=== PATIENT | female | born 1995 | race Caucasian/White ===

== ENCOUNTER 2017-06-16 16:05 | Emergency (ER) | payer BC, OTHER ==
[2017-06-16] MEDS ORDERED: KETOROLAC TROMETHAMINE 30 MG/1 ML VIAL IVPUSH ONE (16:14)
[2017-06-16] MEDS ORDERED: SODIUM CHLORIDE 1,000 ML IV STA ×2 (16:14→18:06)
[2017-06-16] MEDS ORDERED: ACETAMINOPHEN 1000 MG/100 ML VIAL (NON FORMULARY) IVPB ONE (16:14)
[2017-06-16] MEDS ORDERED: ONDANSETRON 4 MG/2 ML VIAL IVPB ONE (16:14)
[2017-06-16] MEDS ORDERED: ACETAMINOPHEN INJECTION 100 ML IVPB ONE (16:19)
[2017-06-16] MEDS ORDERED: KETOROLAC TROMETHAMINE 30 MG/1 ML VIAL ONE (16:19)
[2017-06-16] MEDS ORDERED: ONDANSETRON 4 MG/2 ML VIAL ONE ×2 (16:19→16:43)
--- NOTE | 2017-06-16 16:27 | PDOC ---
History of Present Illness - History of Present Illness Initial Comments: 06/16/17 16:42 The patient is a 22 year old female, with no significant past medical history, who presents to the emergency department with 3 day complaint of nasal congestion, diarrhea, nausea, vomiting, and generalized weakness. The patient states her symptoms started with nasal congestion and rhinorrhea which she started taking Mucinex with little to no alleviation. She states she shortly after developed loose, watery, brown stools. She reports numerous episodes of nonbloody emesis and states she has been dry heaving for the past 3 hours. She attends [employer] and can not deny sick contacts. She is a engineering aid. She denies chest pain, shortness of breath, headache and dizziness. She denies fever, chills, and constipation. She denies dysuria, frequency, urgency and hematuria. Allergies: amoxicillin and penicillin Past surgical history: nose and tonsillectomy Social history: denies toxic habits <Janice Greene - Last Filed: 06/16/17 16:42> <Gen Pollock - Last Filed: 06/16/17 19:06> - General Chief Complaint: Nausea/Vomiting Stated Complaint: NAUSEA &VOMTING Time Seen by Provider: 06/16/17 16:12 Past History <Janice Greene - Last Filed: 06/16/17 16:42> - Past Medical History Asthma: Yes - Immunization History Immunization Up to Date: Yes - Suicide/Smoking/Psychosocial Hx Smoking History: Never smoked Hx Alcohol Use: No Substance Use Type: None <Gen Pollock - Last Filed: 06/16/17 19:06> - Past Medical History Allergies/Adverse Reactions: Allergies Allergy/AdvReac Type Severity Reaction Status Date / Time amoxicillin Allergy Intermediate Vomiting Verified 10/12/14 10:36 Penicillins Allergy Mild Rash Verified 06/16/17 16:10 Home Medications: Ambulatory Orders Albuterol Sulfate Inhaler - [Ventolin HFA Inhaler -] 2 inh PO Q6H PRN 10/12/14 Guaifenesin [Mucinex -] 600 mg PO BID PRN 06/16/17 Ibuprofen [Motrin -] 600 mg PO QID #28 tablet 06/16/17 Norgestimate-Ethinyl Estradiol [Sprintec 28 Day Tablet] 1 each PO DAILY Ondansetron [Zofran *Odt*] 8 mg SL TID #30 od.tablet 06/16/17 Review of Systems - Review of Systems Able to Perform ROS?: Yes Comments:: 06/16/17 16:42 GENERAL/CONSTITUTIONAL: (+) weakness. No fever or chills. HEAD, EYES, EARS, NOSE AND THROAT: (+) nasal congestion. No change in vision. No ear pain or discharge. No sore throat. CARDIOVASCULAR: No chest pain or shortness of breath. RESPIRATORY: No cough, wheezing, or hemoptysis. GASTROINTESTINAL: (+) nausea, vomiting, diarrhea, No constipation. GENITOURINARY: No dysuria, frequency, or change in urination. MUSCULOSKELETAL: No joint or muscle swelling or pain. No neck or back pain. SKIN: No rash NEUROLOGIC: No headache, vertigo, loss of consciousness, or change in strength/ sensation. ENDOCRINE: No increased thirst. No abnormal weight change. HEMATOLOGIC/LYMPHATIC: No anemia, easy bleeding, or history of blood clots. ALLERGIC/IMMUNOLOGIC: No hives or skin allergy. <Janice Greene - Last Filed: 06/16/17 16:42> *Physical Exam - Vital Signs Last Vital Signs Temp Pulse Resp BP Pulse Ox 97.3 F L 128 H 16 128/94 100 06/16/17 16:09 06/16/17 16:09 06/16/17 16:09 06/16/17 16:09 06/16/17 16:09 - Physical Exam Comments: 06/16/17 16:43 GENERAL: Awake, alert, and fully oriented, in no acute distress HEAD: No signs of trauma EYES: PERRLA, EOMI, sclera anicteric, conjunctiva clear ENT: (+) Dry mucosa. Auricles normal inspection, hearing grossly normal, nares patent, oropharynx clear without exudates. NECK: Normal ROM, supple, no lymphadenopathy, JVD, or masses LUNGS: Breath sounds equal, clear to auscultation bilaterally. No wheezes, and no crackles HEART: Regular rate and rhythm, normal S1 and S2, no murmurs, rubs or gallops ABDOMEN: Soft, nontender, normoactive bowel sounds. No guarding, no rebound. No masses EXTREMITIES: Normal range of motion, no edema. No clubbing or cyanosis. No cords, erythema, or tenderness NEUROLOGICAL: Cranial nerves II through XII grossly intact. Normal speech, normal gait SKIN: Warm, Dry, normal turgor, no rashes or lesions noted. <Janice Greene - Last Filed: 06/16/17 16:42> ED Treatment Course - LABORATORY CBC & Chemistry Diagram: 06/16/17 16:25 06/16/17 16:25 <Janice Greene - Last Filed: 06/16/17 16:42> - LABORATORY CBC & Chemistry Diagram: 06/16/17 16:25 06/16/17 16:25 <Gen Pollock - Last Filed: 06/16/17 19:06> *DC/Admit/Observation/Transfer - Attestations Scribe Attestion: 06/16/17 16:44 Documentation prepared by Janice Greene, acting as durable medical equipment repairer for Gen Pollock DO <Janice Greene - Last Filed: 06/16/17 16:42> - Discharge Dispostion Admit: No - Attestations Physician Attestion: 06/16/17 16:13 I, Dr. Gen Pollock, attest that this document has been prepared under my direction and personally reviewed by me in its entirety. I further attest, that it accurately reflects all work, treatment, procedures and medical decision -making performed by me. <Gen Pollock - Last Filed: 06/16/17 19:06> Diagnosis at time of Disposition: Viral infection, Dehydration - Discharge Dispostion Disposition: HOME Condition at time of disposition: Improved - Patient Instructions Printed Discharge Instructions: DI for Viral Syndrome, DI for Viral Gastroenteritis -- Adult Additional Instructions: SORRY THIS HIT YOU SO HARD RUBEN Keep up with the fluids best you can. Gatoraide , Jello, Soup, As much as you can. The diarrhea will pass Zofran is for Nausea or Vomiting Motrin is for bodyaches and fever Return to us if worse- Follow up with your doctor later this week Best- Dr. Gen Pollock
[2017-06-16 16:42] VITALS: BMI 24.0
[2017-06-16 16:59] LABS: ALBUMIN 4.5 g/dl (3.5-5.0); ALK PHOS 101 U/L (32-92); ANION GAP 10 (8-16); BILIRUBIN,TOTAL 0.9 mg/dl (0.2-1.0); CALCIUM 9.5 mg/dl (8.4-10.2); CO2 24 mmol/L (22-28); CREATININE 0.9 mg/dl (0.6-1.3); GLUCOSE,RANDOM 134 mg/dl (74-106); MEAN PLT VOLUME 10.1 fl (7.5-11.1); SGOT/AST 29 U/L (10-42); SGPT/ALT 28 U/L (10-40); TOT PROT 8.2 g/dl (6.4-8.3); WHITE BLOOD COUNT 17.8 K/mm3 (4.0-10.8)
[2017-06-16 17:02] LABS: MCH 28.9 pg (25.7-33.7); MCHC 33.9 g/dl (32.0-36.0); MEAN CELL VOLUME 85.1 fl (80-96); PLATELET COUNT 286 K/MM3 (134-434); RDW 12.2 % (11.6-15.6)
[2017-06-16 17:53] LABS: PLATELET ESTIMATE ADEQUATE (NORMAL)
[2017-06-16 17:58] LABS: PH,URINE 5.5 (4.5-8); URINE APPEARANCE Clear; URINE BILIRUBIN 1+ (NEGATIVE); URINE BLOOD Negative (NEGATIVE); URINE COLOR YELLOW; URINE GLUCOSE (UA) Negative (NEGATIVE); URINE KETONE 3+ (NEGATIVE); URINE LEUK ESTERASE Negative (NEGATIVE); URINE NITRITE Negative (NEGATIVE); URINE PROTEIN 1+ (NEGATIVE); URINE UROBILINOGEN 0.2 (0.2-1.0)
[2017-06-16 18:30] LABS: URINE RBC NONE SEEN /hpf (0-3)
[2017-06-16 18:31] LABS: URINE MUCUS 1+
[2017-06-16 19:25] LABS: MCH 28.3 pg (25.7-33.7); MCHC 33.4 g/dl (32.0-36.0); MEAN CELL VOLUME 84.8 fl (80-96); MEAN PLT VOLUME 9.3 fl (7.5-11.1); NEUTROPHILS 89.8 % (42.8-82.8); PLATELET COUNT 218 K/MM3 (134-434); RDW 12.2 % (11.6-15.6); WHITE BLOOD COUNT 13.1 K/mm3 (4.0-10.8)
[2017-06-16 19:54] VITALS: BP 126/78; PULSE 83; TEMP 98.6
== END 2017-06-16 19:40 | disposition home or self-care (01) ==
LOC: FER 16:05
PROC: 3E033NZ Introduction of Analgesics, Hypnotics, Sedatives into Peripheral Vein, Percutaneous Approach (ICD-10-PCS; principal; 2017-06-16)
PROC: 3E0333Z Introduction of Anti-inflammatory into Peripheral Vein, Percutaneous Approach (ICD-10-PCS; 2017-06-16)
PROC: 3E033GC Introduction of Other Therapeutic Substance into Peripheral Vein, Percutaneous Approach (ICD-10-PCS; 2017-06-16)
PROC: 3E0337Z Introduction of Electrolytic and Water Balance Substance into Peripheral Vein, Percutaneous Approach (ICD-10-PCS; 2017-06-16)
DX: B34.9 Viral infection, unspecified (principal); E86.0 Dehydration
CPT/HCPCS: 36415; 80053; 81003; 81015; 84703; 85025; 99283-25

== ENCOUNTER 2017-08-01 22:54 | Emergency (ER) | payer BC ==
[2017-08-01] MEDS ORDERED: ONDANSETRON 4 MG/2 ML VIAL IVPUSH ONE (23:45)
[2017-08-01] MEDS ORDERED: SODIUM CHLORIDE 0.9% 1000 ML INFUS.BAG IV ONE (23:46)
[2017-08-01 23:50] VITALS: BP 144/91; TEMP 97.9; BMI 23.8
--- NOTE | 2017-08-02 00:23 | PDOC ---
History of Present Illness - General Chief Complaint: Nausea/Vomiting Stated Complaint: vomitting Time Seen by Provider: 08/01/17 23:05 - History of Present Illness Initial Comments: This 22-year-old woman with a history of asthma and susceptibility to infectious disease(reportedly after [place] swine flu several years ago) presents with a one-day history of nausea/vomiting/diarrhea. Patient had a brief episode of "food poisoning" 4 days prior to presentation. This was self- limited and she had no symptoms until today when nausea began this morning. Patient has vomited twice since then and has had multiple episodes of watery stool (no blood or mucus noted). Patient lives in a dormitory at [facility] and there are cases of viral gastroenteritis there reportedly. No fever noted although patient feels "chills". Patient reports generalized abdominal discomfort without specific area of pain. Past History - Past Medical History Allergies/Adverse Reactions: Allergies Allergy/AdvReac Type Severity Reaction Status Date / Time amoxicillin Allergy Intermediate Vomiting Verified 10/12/14 10:36 Penicillins Allergy Mild Rash Verified 06/16/17 16:10 Home Medications: Ambulatory Orders Norgestimate-Ethinyl Estradiol [Sprintec 28 Day Tablet] 1 each PO DAILY Ondansetron [Zofran Odt -] 4 mg SL TID PRN #10 od.tablet 08/02/17 Asthma: Yes COPD: No - Immunization History Immunization Up to Date: Yes - Suicide/Smoking/Psychosocial Hx Smoking History: Never smoked Hx Alcohol Use: No Drug/Substance Use Hx: No Substance Use Type: None Review of Systems - Review of Systems Able to Perform ROS?: Yes Comments:: 12 point review of systems is negative except for what is noted in the history of present illness *Physical Exam - Vital Signs Last Vital Signs Temp Pulse Resp BP Pulse Ox 97.9 F 108 H 18 144/91 99 08/01/17 23:48 08/01/17 23:48 08/01/17 23:48 08/01/17 23:48 08/01/17 23:48 - Physical Exam Comments: GENERAL: Young adult female, alert and oriented 3, in mild distress secondary to nausea/abdominal discomfort HEAD: Normal with no signs of trauma. EYES: PERRLA, EOMI, sclera anicteric, conjunctiva clear. ENT: Ears normal, nares patent, oropharynx clear without exudates. Dry mucous membranes. NECK: Normal range of motion, supple without lymphadenopathy, JVD, or masses. LUNGS: Breath sounds equal, clear to auscultation bilaterally. No wheezes, and no crackles. HEART:Regular rate and rhythm, normal S1 and S2 without murmur, rub or gallop. ABDOMEN:.normal bowel sounds No guarding,tenderness or rebound.No masses No distention. EXTREMITIES: Normal range of motion, no edema. No clubbing or cyanosis. No erythema, or tenderness. NEUROLOGICAL: Cranial nerves II through XII grossly intact. Normal speech. No focal neurological deficits. MUSCULOSKELETAL: Back non-tender to palpation, no CVA tenderness SKIN: Warm, Dry, normal turgor, no rashes or lesions noted. ED Treatment Course - Medications Given in the ED: ED Medications Discontinued Medications Generic Name Dose Route Start Last Admin Trade Name Freq PRN Reason Stop Dose Admin Ondansetron HCl 4 mg 08/01/17 23:45 08/01/17 23:45 Zofran Injection IVPUSH 08/01/17 23:46 4 mg NOW ONE Administration Sodium Chloride 1,000 ml 08/01/17 23:46 08/01/17 23:46 Normal Saline - IV 08/01/17 23:47 1,000 ml NOW ONE Administration Medical Decision Making - Medical Decision Making Patient was treated with IV hydration (a total of 3 L of normal saline IV) along with 8 mg of Zofran IV. The patient continued to have nausea and was given Reglan 10 mg IVPB. Nausea was adequately treated after Reglan and Imodium 4 mg given after patient continued to have loose, watery stools. 1 g of acetaminophen IV administered for persistent abdominal discomfort with good relief of pain. Patient was unable to provide stool samples for C. difficile/stool culture After above medications, patient felt significantly better with no further vomiting. She was discharged with instructions to continue Imodium 2 mg as needed after each loose stool. She was also given prescription for Zofran ODT 4 mg to be used as needed for recurrent nausea. Diet should be clear liquids advancing cautiously to light diet as tolerated. 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 She will be returning home next week for [place] break; at that time, she should follow-up with her doctor. Meanwhile , she has any recurrence of symptoms that are severe and persistent, she should return to the ER *DC/Admit/Observation/Transfer Diagnosis at time of Disposition: Gastroenteritis - Discharge Dispostion Disposition: HOME Condition at time of disposition: Stable - Prescriptions Prescriptions: Ondansetron [Zofran Odt -] 4 mg SL TID PRN #10 od.tablet PRN Reason: Nausea - Referrals - Patient Instructions Printed Discharge Instructions: DI for Diarrhea and Traveler's Diarrhea -- Adult Additional Instructions: Clear liquids and advance to light diet as tolerated Imodium 2 mg after each loose stool up to 8 tablets per day Zofran ODT 4 mg as needed for recurrent nausea Continue probiotics as previously Return to ER if you have severe pain/lightheadedness/fever or black/bloody stools Follow-up with your doctor when you return home for [place] break - Post Discharge Activity
[2017-08-02] MEDS ORDERED: ONDANSETRON 4 MG/2 ML VIAL ONE (00:24)
[2017-08-02] MEDS ORDERED: ONDANSETRON 4 MG/2 ML VIAL IVPUSH ONE (00:24)
[2017-08-02] MEDS ORDERED: HYOSCYAMINE SULFATE 0.125 MG *ODT PO ONE (00:46)
[2017-08-02] MEDS ORDERED: HYOSCYAMINE SULFATE 0.125 MG *ODT ONE (00:48)
[2017-08-02] MEDS ORDERED: TRIMETHOBENZAMIDE HCL 200MG/2ML INJ IM ONE (01:09)
[2017-08-02] MEDS ORDERED: METOCLOPRAMIDE HCL INJECTION 10 MG/2 ML VIAL IVPB ONE (01:09)
[2017-08-02 01:15] VITALS: PULSE 96
[2017-08-02] MEDS ORDERED: SODIUM CHLORIDE 1,000 ML IV STA (01:16)
[2017-08-02] MEDS ORDERED: ACETAMINOPHEN 1000 MG/100 ML VIAL (NON FORMULARY) IVPB ONE (01:56)
[2017-08-02] MEDS ORDERED: ACETAMINOPHEN INJECTION 100 ML IVPB ONE (01:58)
[2017-08-02] MEDS ORDERED: LOPERAMIDE HCL 2 MG CAPSULE PO ONE (02:38)
[2017-08-02] MEDS ORDERED: LOPERAMIDE HCL 2 MG CAPSULE ONE (02:41)
== END 2017-08-02 04:30 | disposition home or self-care (01) ==
LOC: FER 22:54
PROC: 3E033GC Introduction of Other Therapeutic Substance into Peripheral Vein, Percutaneous Approach (ICD-10-PCS; principal; 2017-08-01)
PROC: 3E0337Z Introduction of Electrolytic and Water Balance Substance into Peripheral Vein, Percutaneous Approach (ICD-10-PCS; 2017-08-01)
PROC: 3E033NZ Introduction of Analgesics, Hypnotics, Sedatives into Peripheral Vein, Percutaneous Approach (ICD-10-PCS; 2017-08-01)
DX: K52.9 Noninfective gastroenteritis and colitis, unspecified (principal); J45.909 Unspecified asthma, uncomplicated
CPT/HCPCS: 99282-25